=== PATIENT | male | born 1945 | race Caucasian/White ===

== ENCOUNTER 2021-06-01 05:59 | Emergency (ER) | payer MEDICARE, OTHER ==
--- NOTE | 2021-06-01 06:54 | EDM.PDOC ---
ED HPI GENERAL MEDICAL PROBLEM - General Chief Complaint: Cardiovascular Problem Stated Complaint: TINGLE IN LEFT ARM Time Seen by Provider: 06/01/21 06:10 Source of Information: Reports: Patient History Limitations: Reports: No Limitations - History of Present Illness INITIAL COMMENTS - FREE TEXT/NARRATIVE: c/o slow heart rate pt felt fine yesterday, awoke ~3a and L hand was numb and tingling, he drank some water and went to the bathroom and it did not feel better his children had given him a pulse oximeter for Xmas, he HR was low 40s when his hand did not feel better and HR remained in low 40s, he woke up his and come to ED he thinks his HR is usually in low 60s no prior EKG here, EKG 07-28-08 fax'ed to us from [place] shows sinus rubi 56 with 1st degree AVB no prior h/o CVD, no prior h/o rubi that he knows of tingling in L hand is almost gone, normal use of L hand smoked 1 ppd until 20y ago states he has CKD since 2012 when GFR went from 58 to 38, GFR 40 last week when he saw his lead loader in [facility], he has seen an oncologist in the past well looking for a reason for his CKD, no etiology apparently has been found on no BB/CCB/dig, does take losartan no prior pul ds has had the MustHaveMen[employer] vax - Related Data Allergies Allergy/AdvReac Type Severity Reaction Status Date / Time No Known Allergies Allergy Verified 06/01/21 06:33 Home Meds: Home Meds Aspirin [Adult Low Dose Aspirin EC] 81 mg PO DAILY 01/26/14 [History] Calcium Carbonate/Vitamin D3 [Calcium 600 + Vit D Tablet] 1 each PO DAILY 01/26/14 [History] Cholecalciferol (Vitamin D3) [Vitamin D3] 2,000 unit PO DAILY 01/26/14 [History] Glucosam/Chond/Collagen/Hyalur [Glucosamine Chondroitin] 1 each PO DAILY 01/26/14 [History] Losartan [Cozaar] 100 mg PO DAILY 01/26/14 [History] Multivitamin with Minerals [Multiple Vitamin] 1 tab PO DAILY 01/26/14 [History] [place]-3/DHA/Epa/Fish Oil [[place]-3 Fish Oil 1,200 MG Sfgl] 1,200 mg PO DAILY 01/26/14 [History] gemfibroziL [Lopid] 600 mg PO BIDAC 01/26/14 [History] Pramipexole [Mirapex] 0.25 mg PO ASDIRECTED 06/01/21 [History] Social & Family History - Tobacco Use Tobacco Use Status *Q: Never Tobacco User Second Hand Smoke Exposure: No - Caffeine Use Caffeine Use: Reports: Coffee - Alcohol Use Days Per Week of Alcohol Use: 7 Number of Drinks Per Day: 1 Total Drinks Per Week: 7 - Recreational Drug Use Recreational Drug Use: No ED ROS GENERAL - Review of Systems Review Of Systems: See Below Constitutional: Reports: No Symptoms HEENT: Reports: No Symptoms Respiratory: Reports: No Symptoms. Denies: Shortness of Breath Cardiovascular: Reports: No Symptoms. Denies: Chest Pain Endocrine: Reports: No Symptoms GI/Abdominal: Reports: No Symptoms : Reports: No Symptoms Musculoskeletal: Reports: No Symptoms Skin: Reports: No Symptoms Neurological: Reports: Numbness, Tingling Psychiatric: Reports: No Symptoms Hematologic/Lymphatic: Reports: No Symptoms Immunologic: Reports: No Symptoms ED EXAM, GENERAL - Physical Exam Exam: See Below Exam Limited By: No Limitations General Appearance: Alert, WD/WN, No Apparent Distress Ears: Hearing Grossly Normal Nose: Normal Inspection, Normal Mucosa Throat/Mouth: Normal Inspection, Normal Lips, Normal Teeth, Normal Voice, No Airway Compromise Head: Atraumatic Neck: Normal Inspection, Supple, Non-Tender, Full Range of Motion. 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, no sensory loss in L hand or LUE) Psychiatric: Normal Affect, Normal Mood Skin Exam: Warm, Dry, Intact, Normal Color, No Rash Lymphatic: No Adenopathy #1 Interpretation EKG Date: 06/01/21 Time: 06:13 Rate (Beats/Min): 42 [place]: Normal P-Wave: Present EKG Interpretation Comments: no prior EKG here, nor does pt remember having had one done locally, EKG fax'ed from [place] 07-28-08 also with 1st AVB, however new RBBB age indeterminate, also with QT/QTC 506/432 now c/w 422/407 previously #2 Interpretation EKG Date: 06/01/21 Time: 07:33 Rate (Beats/Min): 50 [place]: Normal EKG Interpretation Comments: now with 2nd AVB Mobitz II, no new ST changes Course - Vital Signs Last Recorded V/S: Last Vital Signs Temp 36.4 C 06/01/21 06:07 Pulse 56 L 06/01/21 07:47 Resp 16 06/01/21 07:47 BP 126/66 06/01/21 07:47 Pulse Ox 98 06/01/21 07:47 - Orders/Labs/Meds Orders: Active Orders 24 hr Category Date Time Status EKG Documentation Completion [RC] ASDIRECTED Care 06/01/21 06:30 Ordered EKG Documentation Completion [RC] ASDIRECTED Care 06/01/21 07:23 Ordered Chest 2V [CR] Stat Exams 06/01/21 06:30 Taken Head wo Cont [CT] Stat Exams 06/01/21 06:44 Ordered Sodium Chloride 0.9% [Normal Saline] 500 ml Med 06/01/21 07:40 Ordered IV .BOLUS EKG 12 Lead [EK] Routine Ther 06/01/21 06:29 Ordered EKG 12 Lead [EK] Routine Ther 06/01/21 07:22 Ordered Medication Orders Sodium Chloride (Normal Saline) 500 mls @ 999 mls/hr IV .BOLUS ONE Stop: 06/01/21 08:10 Last Admin: 06/01/21 07:51 Dose: 999 mls/hr Documented by: KENDRICK Labs: Laboratory Tests 06/01/21 06/01/21 06/01/21 Range/Units 06:38 06:38 06:38 WBC 6.9 (3.2-10.1) x10-3/uL RBC 3.96 (3.90-5.90) x10(6)uL Hgb 12.4 L (12.9-17.7) g/dL Hct 37.5 L (38.3-50.1) % MCV 94.6 (80.8-98.7) fL MCH 31.4 (27.0-33.3) pg MCHC 33.2 (28.7-35.3) g/dL RDW 13.2 (12.4-15.0) % Plt Count 346 (117-477) x10(3)uL MPV 5.9 L (6.7-11.0) fL Neut % (Auto) 54.4 (40.3-71.8) % Lymph % (Auto) 26.6 (15.8-45.3) % [place] % (Auto) 16.2 H (5.5-15.2) % Eos % (Auto) 2.2 (0.1-6.8) % Baso % (Auto) 0.6 (0.3-3.8) % Neut # (Auto) 3.7 (1.7-6.9) x10-3/uL Lymph # (Auto) 1.8 (0.5-4.5) x10-3/uL [place] # (Auto) 1.1 (0.0-1.2) x10-3/uL Eos # (Auto) 0.1 (0.0-0.6) x10-3/uL Baso # (Auto) 0.0 (0.0-0.3) x10-3/uL PT (9.0-11.1) sec INR (1.00-1.24) Sodium 139 (135-145) mmol/L Potassium 4.4 (3.5-5.3) mmol/L Chloride 104 (100-110) mmol/L Carbon Dioxide 27 (21-32) mmol/L BUN 37 H (7-18) mg/dL Creatinine 2.1 H* (0.70-1.30) mg/dL Est Cr Clr Drug Dosing 27.54 mL/min Estimated GFR (MDRD) 31 L (>60) BUN/Creatinine Ratio 17.6 (9-20) Glucose 91 (80-116) mg/dL Calcium 8.9 (8.6-10.2) mg/dL Magnesium (1.8-2.5) mg/dL Total Bilirubin 0.9 (0.1-1.3) mg/dL AST 13 (5-25) IU/L ALT 19 (12-36) U/L Alkaline Phosphatase 69 (56-112) IU/L Troponin I 30.0 (4.0-60.3) pg/mL C-Reactive Protein 0.2 L (0.5-0.9) mg/dL NT-Pro-B Natriuret Pep 468 H (<=450) pg/mL Total Protein 6.6 (6.0-8.0) g/dL Albumin 3.3 (3.2-4.6) g/dL Globulin 3.3 g/dL Albumin/Globulin Ratio 1.0 Urine Color (YELLOW) Urine Appearance (CLEAR) Urine pH (5.0-6.5) Ur Specific [place] (1.010-1.025) Urine Protein (NEGATIVE) mg/dL Urine Glucose (UA) (NORMAL) mg/dL Urine Ketones (NEGATIVE) mg/dL Urine Occult Blood (NEGATIVE) Urine Nitrite (NEGATIVE) Urine Bilirubin (NEGATIVE) Urine Urobilinogen (NEGATIVE) mg/dL Ur Leukocyte Esterase (NEGATIVE) Urine WBC (0-5) Ur Squamous Epith Cells (NS,R,O) Urine Bacteria (NS) 06/01/21 06/01/21 06/01/21 Range/Units 06:38 06:38 07:27 WBC (3.2-10.1) x10-3/uL RBC (3.90-5.90) x10(6)uL Hgb (12.9-17.7) g/dL Hct (38.3-50.1) % MCV (80.8-98.7) fL MCH (27.0-33.3) pg MCHC (28.7-35.3) g/dL RDW (12.4-15.0) % Plt Count (117-477) x10(3)uL MPV (6.7-11.0) fL Neut % (Auto) (40.3-71.8) % Lymph % (Auto) (15.8-45.3) % [place] % (Auto) (5.5-15.2) % Eos % (Auto) (0.1-6.8) % Baso % (Auto) (0.3-3.8) % Neut # (Auto) (1.7-6.9) x10-3/uL Lymph # (Auto) (0.5-4.5) x10-3/uL [place] # (Auto) (0.0-1.2) x10-3/uL Eos # (Auto) (0.0-0.6) x10-3/uL Baso # (Auto) (0.0-0.3) x10-3/uL PT 10.2 (9.0-11.1) sec INR 0.94 L (1.00-1.24) Sodium (135-145) mmol/L Potassium (3.5-5.3) mmol/L Chloride (100-110) mmol/L Carbon Dioxide (21-32) mmol/L BUN (7-18) mg/dL Creatinine (0.70-1.30) mg/dL Est Cr Clr Drug Dosing mL/min Estimated GFR (MDRD) (>60) BUN/Creatinine Ratio (9-20) Glucose (80-116) mg/dL Calcium (8.6-10.2) mg/dL Magnesium 2.3 (1.8-2.5) mg/dL Total Bilirubin (0.1-1.3) mg/dL AST (5-25) IU/L ALT (12-36) U/L Alkaline Phosphatase (56-112) IU/L Troponin I (4.0-60.3) pg/mL C-Reactive Protein (0.5-0.9) mg/dL NT-Pro-B Natriuret Pep (<=450) pg/mL Total Protein (6.0-8.0) g/dL Albumin (3.2-4.6) g/dL Globulin g/dL Albumin/Globulin Ratio Urine Color Yellow (YELLOW) Urine Appearance Clear (CLEAR) Urine pH 5.0 (5.0-6.5) Ur Specific [place] 1.015 (1.010-1.025) Urine Protein Negative (NEGATIVE) mg/dL Urine Glucose (UA) Normal (NORMAL) mg/dL Urine Ketones Negative (NEGATIVE) mg/dL Urine Occult Blood Negative (NEGATIVE) Urine Nitrite Negative (NEGATIVE) Urine Bilirubin Negative (NEGATIVE) Urine Urobilinogen Normal (NEGATIVE) mg/dL Ur Leukocyte Esterase Negative (NEGATIVE) Urine WBC 0-5 (0-5) Ur Squamous Epith Cells Occasional (NS,R,O) Urine Bacteria Occasional H (NS) Meds: Medications Generic Name Dose Route Start Last Admin Trade Name Freq PRN Reason Stop Dose Admin Sodium Chloride 500 mls @ 999 mls/hr 06/01/21 07:40 06/01/21 07:51 Normal Saline IV 06/01/21 08:10 999 mls/hr .BOLUS ONE Administration Discontinued Medications Generic Name Dose Route Start Last Admin Trade Name Freq PRN Reason Stop Dose Admin Aspirin 243 mg 06/01/21 07:40 06/01/21 07:49 Aspirin 81 Mg Tab.Chew PO 06/01/21 07:41 243 mg ONETIME ONE Administration - Re-Assessments/Exams Free Text/Narrative Re-Assessment/Exam: 06/01/21 07:53 call placed to [facility], no open beds, d/w Dr Silver from ED and he accept pt in ED to ED transfer\ pt in sinus rubi of low 40s on arrival, did get as low as 38 once, did get up to 60 briefly in SR, however 1.5h after being here there was widening KS interval with dropped beats, repeat EKG read as 2nd AVB Mobitz II with rate 50 by computer altho it looks more like Mobitz I L hand/tingling numbness gone, head CT without contrast neg per radiology, cause of paresthesia unclear as pt was not hypotensive here despite sxs, unable to do CTA of head and neck d/t low GFR GFR 31 today, down from 40 last week, will give 500 ml NS CxR 2v neg on prelim ED read 06/01/21 08:07 Departure - Departure Time of Disposition: 07:58 Disposition: DC/Tfer to Acute Hospital 02 Reason for Transfer *Q: Other (cardiology to see) Condition: Good Clinical Impression: New onset right bundle branch block (RBBB), Mobitz (type) I (Wenckebach's) atrioventricular block, Bradycardia, Elevated brain natriuretic peptide (BNP) level, Acute on chronic renal insufficiency, Numbness and tingling in left hand Referrals: Saulo Simmons MD [Primary Care Provider] - Forms: ED Department Discharge Sepsis Event Note (ED) - Focused Exam Vital Signs: Vital Signs Temp Pulse Resp BP Pulse Ox 06/01/21 07:47 56 L 16 126/66 98 06/01/21 06:07 36.4 C 41 L 18 117/47 L 99 - My Orders Last 24 Hours: My Active Orders 06/01/21 06:29 EKG 12 Lead [EK] Routine 06/01/21 06:30 EKG Documentation Completion [RC] ASDIRECTED Chest 2V [CR] Stat 06/01/21 06:44 Head wo Cont [CT] Stat 06/01/21 07:22 EKG 12 Lead [EK] Routine 06/01/21 07:23 EKG Documentation Completion [RC] ASDIRECTED 06/01/21 07:40 Sodium Chloride 0.9% [Normal Saline] 500 ml IV .BOLUS - Assessment/Plan Last 24 Hours: My Active Orders 06/01/21 06:29 EKG 12 Lead [EK] Routine 06/01/21 06:30 EKG Documentation Completion [RC] ASDIRECTED Chest 2V [CR] Stat 06/01/21 06:44 Head wo Cont [CT] Stat 06/01/21 07:22 EKG 12 Lead [EK] Routine 06/01/21 07:23 EKG Documentation Completion [RC] ASDIRECTED 06/01/21 07:40 Sodium Chloride 0.9% [Normal Saline] 500 ml IV .BOLUS
[2021-06-01] MEDS ORDERED: Aspirin 81 MG Tab.Chew PO ONE ×2 (07:40→09:36)
[2021-06-01] MEDS ORDERED: Sodium Chloride 0.9% 500 ML IV ONE (07:40)
[2021-06-01] MEDS: Aspirin 81 MG Tab.Chew PO ONE ×2 (07:49→09:39)
--- NOTE | 2021-06-01 12:12 | CR ---
CHEST TWO VIEWS INDICATION: Bradycardia. PA and lateral views of the chest were obtained 05/22/21 - no comparisons. The heart appeared normal in size. The aorta is tortuous with minimal calcification in the arch. Mild degenerative changes are noted in the mid thoracic spine. Overlying EKG leads are noted. An active infiltrate or effusion was not identified. IMPRESSION: 1. No acute process. 2. ASD aorta. MTDD
== END 2021-06-01 08:20 ==
LOC: FB.ED 05:59
DX: I45.10 Unspecified right bundle-branch block (principal); I44.1 Atrioventricular block, second degree; N18.9 Chronic kidney disease, unspecified; R00.1 Bradycardia, unspecified; R79.1 Abnormal coagulation profile; R20.0 Anesthesia of skin; R20.2 Paresthesia of skin; Z79.82 Long term (current) use of aspirin; Z79.899 Other long term (current) drug therapy
CPT/HCPCS: 36415; 70450; 71046; 80053; 81001; 83735; 83880; 84484; 85025; 85610; 86140; 93005; 99285; A9270; J7040

== ENCOUNTER 2022-01-08 11:06 | Day surgery (SDC) | payer MEDICARE, OTHER ==
[2022-01-08] MEDS ORDERED: Midazolam 1 MG/ML 2 ML SDV IV ONE (11:07)
[2022-01-08] MEDS ORDERED: Ondansetron 4 MG/2 ML SDV IVPUSH ONE (11:07)
[2022-01-08] MEDS ORDERED: Lactated Ringers 1,000 ML IV ONE (11:07)
[2022-01-08] MEDS ORDERED: Propofol 200 MG/20 ML SDV IV ONE (11:07)
[2022-01-08] MEDS ORDERED: Lidocaine 2% 100 MG/5 ML Syringe IVPUSH ONE (11:07)
[2022-01-08] MEDS ORDERED: fentaNYL 100 MCG/2 ML SDV IV ONE (11:07)
[2022-01-08] MEDS ORDERED: ePHEDrine 50 MG/ML SDV IV ONE (11:07)
[2022-01-08] MEDS ORDERED: Dexamethasone 4 MG/ML 5 ML MDV IVPUSH ONE (11:07)
[2022-01-08] MEDS ORDERED: Sodium Chloride 0.9% 10 ML Syringe FLUSH PRN (11:30)
[2022-01-08] MEDS ORDERED: Lactated Ringers 1,000 ML IV SCH (11:30)
[2022-01-08] MEDS ORDERED: ceFAZolin 2 GM in Premix Bag 1 BAG IV ONE (13:00)
[2022-01-08] MEDS ORDERED: Bupivacaine 0.25% 30 ML SDV INJECT ONE (13:01)
[2022-01-08] MEDS ORDERED: Lidocaine 1% with EPINEPHrine 1:100,000 20 ML MDV INJECT ONE (13:01)
[2022-01-08] MEDS ORDERED: ceFAZolin 1 GM Vial ONE (13:34)
[2022-01-08] MEDS ORDERED: Acetaminophen/HYDROcodone 325-5 MG Tab PO ONE (15:22)
[2022-01-08] MEDS ORDERED: Ketorolac 30 MG/ML SDV IVPUSH ONE (15:23)
== END 2022-01-08 16:15 | disposition home or self-care (01) ==
LOC: FB.SDS 11:06
PROVIDERS: ATTEND Surgery
DX: K40.91 Unilateral inguinal hernia, without obstruction or gangrene, recurrent (principal); I10 Essential (primary) hypertension; G47.33 Obstructive sleep apnea (adult) (pediatric); Z87.891 Personal history of nicotine dependence; Z79.899 Other long term (current) drug therapy
CPT/HCPCS: 00830-QZ; 94150; A9270-GY; C1781; J0690; J1100; J1885; J2250; J2405; J2704; J3010; J3490; J7120

== ENCOUNTER 2024-01-31 07:51 | Emergency (ER) | payer MEDICARE, OTHER | END 2024-01-31 10:00 | disposition home or self-care (01) | LOC: FB.ED 07:51 | DX: K59.00 Constipation, unspecified (principal); I12.9 Hypertensive chronic kidney disease with stage 1 through stage 4 chronic kidney disease, or unspecified chronic kidney disease; N18.9 Chronic kidney disease, unspecified; E78.00 Pure hypercholesterolemia, unspecified; Z79.899 Other long term (current) drug therapy; Z79.01 Long term (current) use of anticoagulants; Z88.0 Allergy status to penicillin; Z88.6 Allergy status to analgesic agent | CPT/HCPCS: 99283 ==

== ENCOUNTER 2024-03-01 07:36 | Day surgery (SDC) | payer MEDICARE, OTHER ==
[2024-03-01] MEDS ORDERED: Propofol 200 MG/20 ML SDV IV ONE (07:37)
[2024-03-01] MEDS ORDERED: Lidocaine 2% 100 MG/5 ML Syringe IVPUSH ONE (07:37)
[2024-03-01] MEDS ORDERED: Sodium Chloride 0.9% 10 ML Syringe FLUSH PRN (07:45)
[2024-03-01] MEDS: Lactated Ringers 1,000 ML IV SCH (08:34)
[2024-03-01] MEDS: Simethicone Drops 40 MG/0.6 ML 30 ML Bottle ONE (09:18)
== END 2024-03-01 11:28 | disposition home or self-care (01) ==
LOC: FB.SDS 07:36
PROVIDERS: ATTEND Surgery
DX: D12.6 Benign neoplasm of colon, unspecified (principal); K57.30 Diverticulosis of large intestine without perforation or abscess without bleeding; K63.5 Polyp of colon; K59.00 Constipation, unspecified; N40.0 Benign prostatic hyperplasia without lower urinary tract symptoms; R63.4 Abnormal weight loss; E78.5 Hyperlipidemia, unspecified; I10 Essential (primary) hypertension; G47.30 Sleep apnea, unspecified; Z88.1 Allergy status to other antibiotic agents; Z88.8 Allergy status to other drugs, medicaments and biological substances; Z87.891 Personal history of nicotine dependence; Z79.899 Other long term (current) drug therapy; Z79.82 Long term (current) use of aspirin
CPT/HCPCS: 00811; 45385; 88305; 99100; A9270; J2704; J7120

== ENCOUNTER 2025-10-15 11:20 | Emergency (ER) | payer MEDICARE, OTHER | END 2025-10-15 12:26 | disposition home or self-care (01) | LOC: FB.ED 11:20 | DX: G89.29 Other chronic pain (principal); R10.32 Left lower quadrant pain; I10 Essential (primary) hypertension; I25.2 Old myocardial infarction; E78.00 Pure hypercholesterolemia, unspecified; Z88.0 Allergy status to penicillin; Z88.6 Allergy status to analgesic agent; Z79.82 Long term (current) use of aspirin; Z79.899 Other long term (current) drug therapy | CPT/HCPCS: 99283 ==

== ENCOUNTER 2025-10-16 11:16 | Emergency (ER) | payer MEDICARE, OTHER ==
[2025-10-16 13:13] LABS: BASOPHILS ABSOLUTE AUTO 0.0 x10-3/uL (0.0-0.3); BASOPHILS PERCENT AUTO 0.5 % (0.3-3.8); EOSINOPHILS ABSOLUTE AUTO 0.2 x10-3/uL (0.0-0.6); EOSINOPHILS PERCENT AUTO 2.5 % (0.1-6.8); LYMPHOCYTES ABSOLUTE AUTO 0.4 x10-3/uL (0.5-4.5); LYMPHOCYTES PERCENT AUTO 4.9 % (15.8-45.3); MEAN PLATELET VOLUME 6.1 fL (6.7-11.0); MONOCYTES ABSOLUTE AUTO 0.9 x10-3/uL (0.0-1.2); MONOCYTES PERCENT AUTO 10.7 % (5.5-15.2); NEUTROPHILS ABSOLUTE AUTO 7.0 x10-3/uL (1.7-6.9); NEUTROPHILS PERCENT AUTO 81.4 % (40.3-71.8); PLATELET COUNT,PLT 465 x10(3)uL (117-477); RED BLOOD CELL COUNT 3.75 x10(6)uL (3.90-5.90); RED CELL DISTRIBUTION WIDTH 13.9 % (12.4-15.0); WHITE BLOOD CELL COUNT,WBC 8.7 x10-3/uL (3.2-10.1)
[2025-10-16 13:19] LABS: BLOOD UREA NITROGEN,BUN 38 mg/dL (7-18); CARBON DIOXIDE,CO2 27 mmol/L (21-32); CHLORIDE,CL 104 mmol/L (100-110); CREATININE 1.7 mg/dL (0.70-1.30); ESTIMATED GFR 40 mL/min (>60); GLUCOSE RANDOM 102 mg/dL (80-116); POTASSIUM,K 3.7 mmol/L (3.5-5.3); SODIUM,NA 144 mmol/L (135-145)
[2025-10-16 13:27] LABS: A/G RATIO 0.8; ALANINE AMINOTRANSFERASE,ALT 25 U/L (12-36); ASPARTATE AMNIOTRANSFERASE,AST 13 IU/L (5-25); BILIRUBIN TOTAL 0.6 mg/dL (0.1-1.3); CREATINE KINASE,CK 48 IU/L (60-160); PROTEIN TOTAL,TP 7.2 g/dL (6.0-8.0)
[2025-10-16 13:41] LABS: SEDIMENTATION RATE MANUAL 53 mm/hr (0-15)
[2025-10-16 14:05] LABS: GLUCOSE,URINE NORMAL (NORMAL); OCCULT BLOOD,URINE NEGATIVE (NEGATIVE)
[2025-10-16 14:06] LABS: APPEARANCE,URINE CLEAR (CLEAR); SQUAMOUS EPITHELIAL CELLS,UR FEW (NS,R,O)
== END 2025-10-16 15:30 | disposition home or self-care (01) ==
LOC: FB.ED 11:16
DX: R10.31 Right lower quadrant pain (principal); M54.50 Low back pain, unspecified; N48.89 Other specified disorders of penis; E78.00 Pure hypercholesterolemia, unspecified; I12.9 Hypertensive chronic kidney disease with stage 1 through stage 4 chronic kidney disease, or unspecified chronic kidney disease; N18.9 Chronic kidney disease, unspecified; Z88.8 Allergy status to other drugs, medicaments and biological substances; Z88.0 Allergy status to penicillin; Z79.899 Other long term (current) drug therapy; Z79.82 Long term (current) use of aspirin
CPT/HCPCS: 36415; 74176; 80053; 81001; 82550; 85025; 85651; 86140; 99284